=== PATIENT | male | born 1980 | race African-American/Black ===

== ENCOUNTER → 2023-07-06 | Outpatient (CLI) | payer OTHER, SELFPAY ==
--- NOTE | 2023-07-06 08:18 | RAD_ITS ---
STUDY: X-RAY - LEFT HAND REASON FOR EXAM: Male, 43 years old. Pain. Evaluate for arthritis. TECHNIQUE: 2 view(s) of the hand. COMPARISON: None. FINDINGS: Normal radiocarpal articulation. Normal distal radioulnar joint. Normal visualized carpal bones. Normal carpal articulations Normal carpometacarpal articulation of the thumb. Normal second through fifth carpometacarpal joints. Normal metacarpi. Normal metacarpophalangeal joint of the thumb. Normal interphalangeal joint of the thumb. Normal proximal and distal phalanges of the thumb. Normal metacarpophalangeal joints of the second through fifth fingers. Normal proximal and distal interphalangeal joints of the second through fifth fingers. Normal phalanges of the second through fifth fingers. Normal soft tissues. RAD/Hand 2 Views IMPRESSION: Normal x-ray examination of the hand. Electronically Signed: To Lord MD at 9:59 EDT ,
--- NOTE | 2023-07-06 08:18 | RAD_ITS ---
STUDY: X-RAY - THORACIC SPINE REASON FOR EXAM: Male, 43 years old. Pain. Evaluate for abnormality. TECHNIQUE: 2 view(s) of the thoracic spine were obtained on 4 images. COMPARISON: None. FINDINGS: Normal kyphosis of the thoracic spine. There is no substantial scoliosis. Mild lower thoracic and upper lumbar spondylosis. Normal soft tissues. RAD/Thoracic Spine 2 Views IMPRESSION: Mild lower thoracic and upper lumbar spondylosis. No other abnormality. Electronically Signed: To Lord MD at 10:39 EDT ,
--- NOTE | 2023-07-06 08:18 | RAD_ITS ---
STUDY: X-RAY - LEFT SHOULDER REASON FOR EXAM: Male, 43 years old. Pain. Evaluate for arthritis. TECHNIQUE: 2 view(s) of the shoulder. COMPARISON: None. FINDINGS: Normal glenohumeral articulation. Minimal AC joint hypertrophy. Normal acromion. Normal humeral head and visualized proximal humerus. Normal soft tissues. Normal visualized pulmonary apex. RAD/Shoulder min 2 Views IMPRESSION: Minimal AC joint hypertrophy with no other abnormality. Electronically Signed: To Lord MD at 10:37 EDT ,
--- NOTE | 2023-07-06 08:18 | RAD_ITS ---
STUDY: X-RAY - LEFT KNEE REASON FOR EXAM: Male, 43 years old. Pain. Evaluate for arthritis. TECHNIQUE: 3 view(s) of the knee. COMPARISON: None. FINDINGS: Normal visualized distal femur. Normal visualized proximal tibia and fibula. Normal proximal tibiofibular articulation. Mild medial compartmental arthrosis. Normal lateral femorotibial compartment. Normal patellofemoral articulation. Small joint effusion. RAD/Knee 3 Views IMPRESSION: Mild medial compartmental arthrosis with small joint effusion. No other abnormality. Electronically Signed: To Lord MD at 10:38 EDT ,
--- NOTE | 2023-07-06 08:18 | RAD_ITS ---
STUDY: X-RAY - LEFT ELBOW REASON FOR EXAM: Male, 43 years old. Pain. Evaluate for arthritis. TECHNIQUE: 2 view(s) of the elbow. COMPARISON: None. FINDINGS: Normal visualized humerus, radius and ulna. Normal radiocapitellar and ulnotrochlear articulations. Normal soft tissues. RAD/Elbow 2 Views IMPRESSION: Normal x-ray examination of the elbow. Electronically Signed: To Lord MD at 9:59 EDT ,
[2023-07-06 10:02] LABS: Color, Urine Yellow (Yellow); Glucose, Dipstick Normal (Normal); Ketone-Dipstick Negative (Negative); Leukocyte Esterase-Dipstick Negative /ul (Negative); Nitrite-Dipstick Negative (Negative); Occult Blood-Urine 10 /ul (Negative); Protein-Dipstick 15 mg/dl (Negative); Urine Bilirubin Dipstick Negative (Negative); Urine Clarity Clear (Clear); Urine Urobilinogen Normal (Normal)
[2023-07-06 10:27] LABS: AST(SGOT) 32 U/L (15-37); Alanine Aminotransfer ALT/SGPT 44 U/L (16-61); Albumin, Serum 3.9 g/dL (3.2-5.0); Alkaline Phosphatase 61 U/L (45-117); Anion Gap 4 (5-15); BUN 18 mg/dL (7-18); BUN/Creat Ratio 14.4 RATIO (10-20); Calcium,Total 9.1 mg/dL (8.5-10.1); Chloride 105 mmol/L (98-107); Creatinine, Serum 1.25 mg/dL (0.70-1.30); EST Glomerular Filtration Rate 67 mL/min (>60); Est Glom Filt Rate - Afr Amer 81 mL/min (>60); Globulin 4.1 g/dL (2.2-4.2); Glucose 97 mg/dL (74-106); Potassium 3.5 mmol/L (3.5-5.1); Sodium Level 137 mmol/L (136-145)
--- NOTE | 2023-07-07 09:42 | PFT ---
INTRODUCTION: The patient is a 43-year-old -Citizen Of The [place] male who presents for pulmonary function studies secondary to a diagnosis of asthma. Respiratory therapy reported good patient effort. Bronchodilators were used during testing. INTERPRETATION: Forced expiration spirometry demonstrates no evidence of a large airways obstructive ventilatory defect. There was no significant response to aerosolized bronchodilators. Spirograms are of good quality and plateau normally. Body plethysmography was performed and revealed a decreased TLC to 4.59 L, 64% of predicted, indicative of a moderate restrictive ventilatory impairment. Diffusing capacity by single breath CO was within normal limits. IMPRESSION: Moderate restrictive ventilatory impairment.
== END | disposition home or self-care (01) ==
LOC: PSN 08:05
PROVIDERS: PCP Chiropractor; Referring Provider Chiropractor; Visit Provider Chiropractor
DX: M51.34 Other intervertebral disc degeneration, thoracic region (principal); M19.90 Unspecified osteoarthritis, unspecified site; M19.042 Primary osteoarthritis, left hand; J45.998 Other asthma; S69.92XA Unspecified injury of left wrist, hand and finger(s), initial encounter
CPT/HCPCS: 36415; 72070; 73030; 73070; 73120; 73562; 80053; 81002; 94060; 94726; 94729